=== PATIENT | male | born 1985 | race African-American/Black ===

== ENCOUNTER 2020-12-21 02:46 | Emergency (ER) | payer MEDICAID ==
[~2020-12-21] VITALS: Ht 180.3 cm; Wt 77.0 kg
[2020-12-21 03:01] VITALS: BP 131/92
[2020-12-21] MEDS ORDERED: ACETAMINOPHEN 325MG TABLET PO ONE (03:30)
== END 2020-12-21 05:25 | disposition home or self-care (01) ==
LOC: ER 02:46
DX: S93.602A Unspecified sprain of left foot, initial encounter (principal); V29.88XA Motorcycle rider (driver) (passenger) injured in other specified transport accidents, initial encounter; Y93.55 Activity, bike riding; Y92.89 Other specified places as the place of occurrence of the external cause; Y99.8 Other external cause status
CPT/HCPCS: 73630; 99283

== ENCOUNTER 2024-08-12 18:11 | Emergency (ER) | payer MEDICAID ==
[~2024-08-12] VITALS: Ht 180.3 cm; Wt 96.0 kg
[2024-08-12 18:24] VITALS: O2SAT 99
[2024-08-12] MEDS ORDERED: TOPUD MT (19:40)
[2024-08-12] MEDS: ACETAMINOPHEN 500MG TABLET PO ONE (19:45)
[2024-08-12 19:59] VITALS: BP 134/66; PULSE 73; RESP 18; TEMP 37.28076; O2SAT 99
== END 2024-08-12 20:00 | disposition home or self-care (01) ==
LOC: ER 18:11
DX: B34.9 Viral infection, unspecified (principal); Z98.890 Other specified postprocedural states
CPT/HCPCS: 99282